=== PATIENT | female | born 1980 | race Caucasian/White ===

== ENCOUNTER 2018-07-14 02:40 | Inpatient (IN) | payer BC ==
[~2018-07-14] VITALS: Ht 160 cm; Wt 86.6 kg
[2018-07-14] MEDS ORDERED: BETAMET ACET/BETAMET NA PH 30 MG/5 ML VIAL IM ONE ×3 (03:02→15:35)
[2018-07-14] MEDS ORDERED: LR 1,000 ML IV SCH (03:17)
[2018-07-14] MEDS ORDERED: LR 1,000 ML IV ONE (03:17)
[2018-07-14] MEDS ORDERED: OXYTOCIN/0.9 % SODIUM CHLORIDE 1,000 ML IV SCH (03:17)
[2018-07-14] MEDS ORDERED: NALBUPHINE HCL 10 MG/ML AMP IVP PRN (03:30)
[2018-07-14] MEDS ORDERED: MAGNESIUM SULFATE IN WATER 500 ML IV PRN (03:30)
[2018-07-14] MEDS ORDERED: TERBUTALINE SULFATE 1 MG/ML VIAL SUBCUT ONE (03:30)
[2018-07-14] MEDS ORDERED: AMPICILLIN SODIUM 2 GM in NS 100 ML IV ONE (03:30)
[2018-07-14] MEDS ORDERED: MAGNESIUM SULFATE IN WATER 100 ML IV ONE (03:30)
[2018-07-14] MEDS ORDERED: AMPICILLIN SODIUM 1 GM in NS 50 ML IV SCH (03:30)
[2018-07-14] MEDS ORDERED: AMPICILLIN SODIUM 2 GM VIAL ONE (04:01)
[2018-07-14 04:19] LABS: HEMATOCRIT 32.3 % (36-48); MEAN CORPUSCULAR HEMOGLOBIN 30 pg (27-31); MEAN CORPUSCULAR HGB CONC 34 % (32-36); MEAN CORPUSCULAR VOLUME 87 fL (79.0-98.0); RED BLOOD CELL COUNT(AUTO) 3.71 MIL/uL (4.2-6.2); RED CELL DISTRIBUTION WIDTH 13.8 % (9.0-15.0); WHITE BLOOD COUNT (AUTO) 12.3 K/uL (4.8-10.8)
[2018-07-14 04:20] LABS: BASOPHILS # (AUTO) 0.1 K/uL (0.0-0.2); BASOPHILS % (AUTO) 0.6 % (0.0-2.0); EOSINOPHILS # (AUTO) 0.2 K/uL (0.0-0.4); EOSINOPHILS % (AUTO) 1.8 % (0.0-4.0); LYMPHOCYTES # (AUTO) 1.9 K/uL (1.0-5.5); LYMPHOCYTES % (AUTO) 15.2 % (20.5-51.5); MONOCYTES # (AUTO) 1.1 K/uL (0.0-1.0); MONOCYTES % (AUTO) 8.7 % (1.7-9.3); NEUTROPHILS # (AUTO) 9.1 K/uL (1.8-7.7); NEUTROPHILS % (AUTO) 73.7 % (40.0-70.0); PLATELET COUNT (AUTO) 312 K/uL (130-430)
[2018-07-14 06:27] VITALS: BP_SYST 128
[2018-07-14] MEDS ORDERED: AZITHROMYCIN 500 MG in NS 250 ML IV ONE (07:30)
--- NOTE | 2018-07-14 16:09 | NUR ---
Discharge Planning: [facility]f [phone] p [phone]) ref#[id number] Auth was needed for transportation to higher level of care, [place] ([phone])
[2018-07-15] MEDS ORDERED: AZITHROMYCIN 250 MG in NS 250 ML IV SCH (09:00)
== END 2018-07-14 10:50 | disposition short-term general hospital (02) | DRG 833 ==
LOC: SPU 02:40
PROVIDERS: ADMIT Specialist; ATTEND Specialist
DX: O42.913 Preterm premature rupture of membranes, unspecified as to length of time between rupture and onset of labor, third trimester (principal); Z3A.33 33 weeks gestation of pregnancy
CPT/HCPCS: 36415; 76805-TC; 81002-TC; 85025; 86592; 86886; 86900; 86901; 94760; J0290; J0456; J0702; J3475; J7050